=== PATIENT | female | born 1990 | race Caucasian/White ===

== ENCOUNTER 2022-12-31 23:11 | Emergency (ER) | payer SELFPAY ==
[2022-12-31] MEDS ORDERED: diphenhydrAMINE 50 MG/ML VIAL ONE (23:30)
[2022-12-31] MEDS ORDERED: Haloperidol Lactate 5 MG/ML VIAL ONE (23:30)
[2022-12-31] MEDS ORDERED: LORazepam 2 MG/ML SYR.(CARPUJECT) ONE (23:31)
[2023-01-01 00:55] LABS: Hematocrit 40.3 % (36.0-47.0); Hemoglobin 13.7 g/dL (12.0-16.0); Mean Corpuscular Hemoglobin 30.9 pg (27.0-31.0); Mean Platelet Volume 8.7 fL (7.4-10.4); Platelet Count 397 10x3/uL (130-400); RBC Distribution Width 13.9 % (11.5-14.5); Red Blood Cell (RBC) Count 4.43 mill/uL (4.20-5.40); White Blood Cell (WBC) Count 6.5 10x3/uL (4.8-10.8)
[2023-01-01 00:56] LABS: Delete Auto Diff?? YES; Manual Diff?? YES
[2023-01-01 01:05] LABS: BHCG - Serum Negative (NEGATIVE); Pregs Control Background? CLEAR/WHITE (CLR/WHITE); Pregs Control Bar Appear? YES (CONTROL BAR)
[2023-01-01 01:17] LABS: ALT (SGPT) 23 U/L (8-55); AST (SGOT) 25 U/L (5-34); Albumin 3.4 g/dL (3.5-5.0); Alkaline Phosphatase 96 U/L (40-110); Anion Gap 16 mmol/L (10-20); BUN (Urea Nitrogen) 15 mg/dL (7.0-18.7); Bilirubin, Total Less than 0.2 mg/dL (0.2-1.2); Calc. Creatinine Clearance 0 mL/min (70-130); Calcium 8.1 mg/dL (7.8-10.44); Carbon Dioxide 25 mmol/L (22-29); Chloride 110 mmol/L (98-107); Estimated GFR 99; Glucose 119 mg/dL (70-105); Magnesium 1.7 mg/dL (1.6-2.6); Potassium 3.4 mmol/L (3.5-5.1); Protein, Total 6.4 g/dL (6.0-8.3); Sodium 148 mmol/L (136-145)
[2023-01-01 01:20] LABS: Troponin I Less than 0.010 ng/mL (< 0.028)
[2023-01-01 01:22] LABS: Acetaminophen Less than 10 mcg/mL (10.0-30.0); Alcohol 325.6 mg/dL (Less than 10); Salicylate Less than 8.0 mg/dL (15.0-30.0)
[2023-01-01 01:25] LABS: Eosinophils 3 % (0-10); Lymphocytes 40 % (21-51); Monocytes 1 % (0-10); Neutrophil 50 % (42-75); Reactive Lymphocytes 6 % (0-10)
[2023-01-01 01:27] LABS: Large Platelets SLIGHT (None Seen); RBC Morph Comment Within Normal Limits
[2023-01-01 01:28] LABS: Platelet Adequacy Comment Platelets Normal
== END 2023-01-01 03:10 ==
LOC: ERS 23:11
DX: F10.129 Alcohol abuse with intoxication, unspecified (principal); E87.0 Hyperosmolality and hypernatremia; E87.6 Hypokalemia
CPT/HCPCS: 36415; 70450; 80053; 80307; 83735; 84484; 84703; 85025; 93005; 96372; J1200; J1630; J2060